=== PATIENT | female | born 1980 | race Caucasian/White ===

== ENCOUNTER 2016-08-29 11:13 | Emergency (ER) | payer MEDICAID ==
[~2016-08-29] VITALS: Ht 162.6 cm; Wt 77.3 kg
[~2016-08-29 11:13] MED LIST: NOCURR
[2016-08-29 12:49] LABS: BASOPHILS % (AUTO) 0.4 % (0.0-2.0); EOSINOPHILS % (AUTO) 1.5 % (1.0-6.0); HEMATOCRIT 39.7 % (36-46); HEMOGLOBIN 12.9 g/dL (12.0-16.0); LYMPHOCYTES # (AUTO) 2.9 K/uL (1.0-4.8); LYMPHOCYTES % (AUTO) 43.6 % (22.0-44.0); MEAN CORPUSCULAR HEMOGLOBIN 30.2 pg (26.0-34.0); MEAN CORPUSCULAR HGB CONC 32.5 G/dL (31.0-37.0); MEAN CORPUSCULAR VOLUME 93 fL (80-100); MONOCYTES # (AUTO) 0.7 K/uL (0.1-1.0); MONOCYTES % (AUTO) 10.5 % (2.0-9.0); PLATELET COUNT (AUTO) 257 K/uL (150-450); RED BLOOD CELL COUNT(AUTO) 4.27 MIL/uL (4.00-5.20); RED CELL DISTRIBUTION WIDTH 13.5 % (11.5-14.5); WHITE BLOOD COUNT (AUTO) 6.7 K/uL (4.5-11.0)
[2016-08-29 12:58] LABS: ANION GAP 11 mmol/L (8-16); CALCIUM, TOTAL 8.9 mg/dL (8.8-10.5); CARBON DIOXIDE 28 mmol/L (22-29); CHLORIDE 104 mmol/L (98-107); CREATININE 0.74 mg/dL (0.60-1.30); GLOMERULAR FILTR. RATE CALC > 60 mL/min (>60); SODIUM SERUM 143 mmol/L (136-145); UREA NITROGEN, BLOOD 10 mg/dL (7-18)
[2016-08-29 13:05] LABS: ALANINE AMINOTRANSFERASE 18 U/L (12-78); ALBUMIN 3.8 g/dL (3.4-5.0); ASPARTATE AMINOTRANSFERASE 14 U/L (15-37); BILIRUBIN,TOTAL 0.3 mg/dL (0.1-1.0); TOTAL PROTEIN, SERUM 7.7 g/dL (6.4-8.2)
[2016-08-29] MEDS ORDERED: ONDANSETRON HCL 4 MG/2 ML VIAL IVP ONE (13:30)
[2016-08-29] MEDS ORDERED: SODIUM CHLORIDE 0.9% 1,000 ML IV ONE (13:30)
[2016-08-29] MEDS ORDERED: KETOROLAC TROMETHAMINE 30 MG/ML VIAL IVP ONE (13:30)
[2016-08-29] MEDS ORDERED: LOPERAMIDE HCL 2 MG CAPSULE PO ONE (13:30)
[2016-08-29 13:31] LABS: APPEARANCE,URINE CLEAR (CLEAR); GLUCOSE, URINE (UA) NEGATIVE (NEGATIVE); KETONES,URINE NEGATIVE (NEGATIVE); OCCULT BLOOD,URINE TRACE (NEGATIVE); PH,URINE 5.5 (5.0-8.0); PROTEIN,URINE NEGATIVE (NEGATIVE)
[2016-08-29 13:32] LABS: ADD UA MICROSCOPIC YES; LEUKOCYTE ESTERASE ,URINE NEGATIVE (NEGATIVE)
[2016-08-29 13:36] LABS: RBC,URINE 0-2 /HPF (0-2); SQUAMOUS EPITHELIAL CELL,UR Few /LPF (None Seen); WBC,URINE None Seen /HPF (0-5)
[2016-08-29] MEDS ORDERED: DONNATAL/LIDOCAINE/MAALOX 55 ML BOTTLE PO ONE (15:45)
[2016-08-29 16:30] VITALS: BP 106/57
== END 2016-08-29 16:36 | disposition home or self-care (01) ==
LOC: EMS 11:15
DX: R10.30 Lower abdominal pain, unspecified (principal); R19.7 Diarrhea, unspecified; R11.0 Nausea; F17.210 Nicotine dependence, cigarettes, uncomplicated
CPT/HCPCS: 36415; 80053; 81001; 83690; 84703; 85025; 96361; 96374; 96375; 99284; J1885; J2405; J7030; Z7610

== ENCOUNTER 2025-03-11 16:07 | Inpatient (IN) | payer MEDICAID, OTHER ==
[~2025-03-11] VITALS: Ht 162.6 cm; Wt 68.9 kg
[2025-03-11 17:21] LABS: APPEARANCE,URINE HAZY (CLEAR); GLUCOSE, URINE (UA) NEGATIVE (NEGATIVE); LEUKOCYTE ESTERASE ,URINE SMALL (NEGATIVE); NITRATE,URINE POSITIVE (NEGATIVE); OCCULT BLOOD,URINE NEGATIVE (NEGATIVE); SPECIFIC GRAVITIY, URINE 1.018 (1.003-1.030)
[2025-03-11 17:24] LABS: PLATELET COUNT (AUTO) 321 K/uL (150-450); RED BLOOD CELL COUNT(AUTO) 4.72 MIL/uL (4.00-5.20); RED CELL DISTRIBUTION WIDTH 13.8 % (11.5-14.5); WHITE BLOOD COUNT (AUTO) 9.3 K/uL (4.5-11.0)
[2025-03-11 17:30] LABS: SQUAMOUS EPITHELIAL CELL,UR Rare /LPF (None Seen)
[2025-03-11 17:32] LABS: CALCIUM, TOTAL 9.0 mg/dL (8.8-10.5); CREATININE 0.91 mg/dL (0.60-1.30); GLOMERULAR FILTR. RATE CALC > 60 mL/min (>60); GLUCOSE,RANDOM 112 mg/dL (70-110); SODIUM SERUM 137 mmol/L (136-145); UREA NITROGEN, BLOOD 14 mg/dL (7-18)
[2025-03-11 17:42] LABS: TROPONIN I-HIGH SENSITIVITY 11 ng/L (<51)
[2025-03-11 17:45] LABS: HCG,QUANTITATIVE < 1 mIU/mL (0-6)
[2025-03-11 18:16] LABS: PH,URINE DRUG SCREEN 5.5 (5.0-8.0)
[2025-03-11 18:29] LABS: AMPHET/METH SCREEN,URINE POSITIVE (NEGATIVE); BARBITURATE SCREEN, URINE NEGATIVE (NEGATIVE); CANNABINOID SCREEN,URINE POSITIVE (NEGATIVE); COCAINE SCREEN,URINE NEGATIVE (NEGATIVE); METHADONE SCREEN, URINE NEGATIVE (NEGATIVE)
[2025-03-11 18:52] LABS: ALCOHOL, URINE DRUG SCREEN NEGATIVE (NEGATIVE)
[2025-03-11] MEDS ORDERED: ONDANSETRON HCL 4 MG/2 ML VIAL IVP PRN (20:00)
[2025-03-11] MEDS: DOCUSATE SODIUM 100 MG CAPSULE PO SCH (21:14)
[2025-03-11] MEDS: LABETALOL HCL 100 MG TABLET PO SCH (21:14)
[2025-03-11] MEDS: ACETAMINOPHEN 325 MG TABLET PO PRN (21:37)
[2025-03-11 22:35] VITALS: BP 163/108; PULSE 81; RESP 17; TEMP 98.2; O2SAT 98
[2025-03-11] MEDS: HEPARIN SODIUM,PORCINE 5,000 UNITS/ML VIAL SQ SCH (23:39)
[2025-03-12 00:03] VITALS: BP 147/95; PULSE 78
[2025-03-12 04:00] VITALS: BP 161/93; PULSE 71; RESP 18; TEMP 97.5; O2SAT 99
[2025-03-12 07:18] VITALS: BP 153/97; PULSE 83; RESP 20; TEMP 97.9; O2SAT 99
[2025-03-12 08:00] LABS: PLATELET COUNT (AUTO) 316 K/uL (150-450); RED BLOOD CELL COUNT(AUTO) 4.64 MIL/uL (4.00-5.20); RED CELL DISTRIBUTION WIDTH 13.6 % (11.5-14.5); WHITE BLOOD COUNT (AUTO) 8.7 K/uL (4.5-11.0)
[2025-03-12 08:12] LABS: CALCIUM, TOTAL 8.9 mg/dL (8.8-10.5); CREATININE 0.64 mg/dL (0.60-1.30); GLOMERULAR FILTR. RATE CALC > 60 mL/min (>60); GLUCOSE,RANDOM 104 mg/dL (70-110); SODIUM SERUM 136 mmol/L (136-145); UREA NITROGEN, BLOOD 10 mg/dL (7-18)
[2025-03-12] MEDS: SENNOSIDES 8.8 MG/5 ML SYRUP UDCUP PO ONE (15:01)
[2025-03-12] MEDS: POLYETHYLENE GLYCOL 3350 17 GM PACKET PO ONE (15:02)
[2025-03-12 17:59] VITALS: BP 149/93; PULSE 71; RESP 18; TEMP 98.2; O2SAT 96
[2025-03-12 19:23] VITALS: BP 126/76; PULSE 83; RESP 18; TEMP 98.2; O2SAT 100
[2025-03-13 04:39] VITALS: BP 131/90; PULSE 78; RESP 18; TEMP 98.1; O2SAT 100
[2025-03-13 06:07] LABS: HEPATITIS C AB (EIA) Non Reactive (Non Reactive)
[2025-03-13 08:00] VITALS: BP 147/88; PULSE 94; RESP 20; TEMP 99.1; O2SAT 100
[2025-03-13] MEDS ORDERED: AMLO-258 PO (13:01)
[2025-03-13] MEDS ORDERED: LABE100T51 PO (13:04)
[2025-03-13] MEDS ORDERED: LISI-894 PO (13:04)
[2025-03-13 20:20] VITALS: BP 125/76; PULSE 94; RESP 18; TEMP 98.8; O2SAT 97
[2025-03-13] MEDS: IBUPROFEN 400 MG TABLET PO ONE (20:22)
[2025-03-13 20:27] VITALS: BP 127/77; PULSE 88; RESP 19; O2SAT 99
[2025-03-14 04:45] VITALS: BP 138/90; PULSE 78; RESP 18; TEMP 98.4; O2SAT 100
[2025-03-14 08:24] VITALS: BP 147/88; PULSE 86; RESP 18; TEMP 98.1
[2025-03-14 15:37] VITALS: BP 126/80; PULSE 85; RESP 19; TEMP 98; O2SAT 100
[2025-03-14 20:27] VITALS: BP 123/74; PULSE 83; RESP 18; TEMP 98.1; O2SAT 99
[2025-03-15 04:00] VITALS: BP 136/89; PULSE 72; RESP 18; TEMP 98.2; O2SAT 99
== END 2025-03-15 10:22 | DRG 305 ==
LOC: EMS 16:30 → EDH 20:00 → 5N 22:09 → 6N 03-12 02:52
PROVIDERS: ADMIT Internal Medicine; ATTEND Internal Medicine
PROC: GZ58ZZZ Individual Psychotherapy, Cognitive-Behavioral (ICD-10-PCS; principal; 2025-03-14)
PROC: GZ56ZZZ Individual Psychotherapy, Supportive (ICD-10-PCS; 2025-03-14)
DX: I16.0 Hypertensive urgency (principal); F12.20 Cannabis dependence, uncomplicated; F33.9 Major depressive disorder, recurrent, unspecified; F15.20 Other stimulant dependence, uncomplicated; I10 Essential (primary) hypertension; F16.20 Hallucinogen dependence, uncomplicated; F41.9 Anxiety disorder, unspecified; F17.200 Nicotine dependence, unspecified, uncomplicated; F19.90 Other psychoactive substance use, unspecified, uncomplicated; Z87.442 Personal history of urinary calculi; Z87.59 Personal history of other complications of pregnancy, childbirth and the puerperium; Z91.199 Patient's noncompliance with other medical treatment and regimen due to unspecified reason
CPT/HCPCS: 70450; 71045; 80048; 80307; 81001; 83735; 83880; 84484; 84702; 85025; 85610; 85730; 86803; 87340; 93005; 96374; 99291; J0360; J1644; 36415-L1; 36415-TC